=== PATIENT | male | born 1960 | race Hispanic/Latino ===

== ENCOUNTER 2020-09-28 22:08 | Inpatient (IN) | payer MEDICARE ==
[~2020-09-28] VITALS: Ht 170.2 cm; Wt 94.3 kg
[~2020-09-28 22:08] MED LIST: GLYBURIDE5 MG PO; HYDROCHLOROTHIA25 MG PO; LISINOPRIL40 MG PO; METFORMIN HCL500 MG PO
[2020-09-28] MEDS ORDERED: SODIUM CHLORIDE 0.9% 1000ML 1,000 ML IV STA (22:29)
[2020-09-28] MEDS ORDERED: PIPERACILLIN/TAZOBAC 3.375 GM in SODIUM CHLORIDE 0.9% 50ML 50 ML IV STA (22:33)
[2020-09-28 22:56] LABS: BASOPHILS # (AUTO) 0.1 (0.0-0.1); BASOPHILS % 0.6 % (0.0-1.0); EOSINOPHILS # (AUTO) 0.2 (0.0-0.4); EOSINOPHILS % 1.2 % (0.0-6.0); HEMATOCRIT 41.6 % (38.2-49.6); HEMOGLOBIN 14.6 g/dL (14.0-18.0); LYMPHOCYTES # (AUTO) 2.3 (1.0-3.2); LYMPHOCYTES % 14.7 % (18.0-39.1); MEAN CORPUSCULAR HEMOGLOBIN 29.4 pg (28-32); MEAN CORPUSCULAR HGB CONC 35.1 g/dL (31-35); MEAN CORPUSCULAR VOLUME 83.7 fL (81-99); MONOCYTES # (AUTO) 1.4 (0.2-0.8); MONOCYTES % 8.7 % (4.4-11.3); NEUTROPHILS # (AUTO) 11.6 (2.1-6.9); NEUTROPHILS % 74.2 % (38.7-80.0); PLATELET COUNT 264 x10e3/uL (140-360); RED BLOOD COUNT 4.97 x10e6/uL (4.3-5.7); RED CELL DISTRIBUTION WIDTH 13.3 % (11.7-14.4)
[2020-09-28] MEDS ORDERED: MORPHINE SULFATE INJ 2 MG/ML SYR ONE (23:10)
[2020-09-28] MEDS ORDERED: ONDANSETRON HCL INJ 2MG/ML 2ML 2 MG/ML VIAL ONE (23:10)
[2020-09-28 23:16] LABS: ALANINE AMINOTRANSFERASE 19 IU/L (0-55); ALBUMIN 4.1 g/dL (3.5-5.0); ALBUMIN/GLOBULIN RATIO 0.8 (0.8-2.0); ALKALINE PHOSPHATASE 75 IU/L (40-150); ANION GAP 17.8 mmol/L (8-16); BLOOD UREA NITROGEN 18 mg/dL (7-26); BUN/CREATININE RATIO 15 (6-25); CALCIUM 9.1 mg/dL (8.4-10.2); CARBON DIOXIDE 26 mmol/L (22-29); CHLORIDE 99 mmol/L (98-107); CREATININE, SERUM 1.19 mg/dL (0.72-1.25); EST GLOMERULAR FILTRATION RATE > 60 ML/MIN (60-); GLUCOSE 154 mg/dL (74-118); POTASSIUM 3.8 mmol/L (3.5-5.1); SODIUM 139 mmol/L (136-145)
[2020-09-28] MEDS ORDERED: ONDANSETRON HCL INJ 2MG/ML 2ML 2 MG/ML VIAL IV STA (23:16)
[2020-09-28] MEDS ORDERED: MORPHINE SULFATE INJ 2 MG/ML SYR IV STA (23:16)
[2020-09-28] MEDS ORDERED: MORPHINE SULFATE INJ 4 MG/ML INJ 1ML IV STA (23:21)
[2020-09-28] MEDS ORDERED: LIDOCAINE HCL 1% LOCAL INJ 20 ML VIAL ONE (23:56)
[2020-09-29 00:21] LABS: BODY FLUID APPEARANCE CLOUDY; BODY FLUID COLOR YELLOW; BODY FLUID TYPE SYNOVIAL
[2020-09-29 00:23] LABS: RBC,BODY FLUID 154 cells/uL; WBC,BODY FLUID 7216 cells/uL
[2020-09-29 00:42] LABS: LYMPHOCYTES,BODY FLUID 17 %; MONO/MACROPHG,BODY FLUID 4 %; NEUTROPHILS,BODY FLUID 79 %
[2020-09-29] MEDS: SODIUM CHLORIDE 0.9% 1000ML 1,000 ML IV SCH ×3 (01:59→16:54)
[2020-09-29] MEDS: ONDANSETRON HCL INJ 2MG/ML 2ML 2 MG/ML VIAL IV PRN ×3 (06:49→21:30)
[2020-09-29] MEDS: MORPHINE SULFATE INJ 4 MG/ML INJ 1ML IV PRN ×3 (06:49→21:30)
[2020-09-29] MEDS ORDERED: PIPER-TAZ 3.375 GM / NS 50ML IV SCH (08:15)
[2020-09-29] MEDS ORDERED: SODIUM CHLORIDE 0.9% 1000ML 1,000 ML IV SCH (08:15)
[2020-09-29] MEDS: ENOXAPARIN SOD INJ 40 MG/0.4 ML SYR SC SCH (09:00)
[2020-09-29] MEDS: PIPERACILLIN/TAZOBAC 3.375 GM in SODIUM CHLORIDE 0.9% 50ML 50 ML IV SCH ×2 (09:00→16:54)
[2020-09-29] MEDS ORDERED: METFORMIN HCL500 MG PO (16:59)
[2020-09-29] MEDS ORDERED: ATENOLOL50 MG PO (16:59)
[2020-09-29] MEDS ORDERED: NEURONTIN300 MG PO (16:59)
[2020-09-29] MEDS ORDERED: ASPIRIN81 MG PO (16:59)
[2020-09-29] MEDS ORDERED: GLIMEPIRIDE4 MG PO (16:59)
[2020-09-29] MEDS ORDERED: ATORVASTATIN CA10 MG PO (16:59)
[2020-09-29] MEDS ORDERED: NIFEDIPINE10 MG PO (16:59)
[2020-09-29] MEDS ORDERED: CEFTRIAXONE SOD 1 GM/50 ML BAG IV SCH (17:15)
[2020-09-29] MEDS ORDERED: ULTRAM50 MG PO (18:15)
[2020-09-29] MEDS: CEFTRIAXONE SOD 1 GM in SODIUM CHLORIDE 0.9% 50ML 50 ML IV SCH (19:22)
[2020-09-29 20:00] VITALS: BP 177/84
[2020-09-29 21:30] VITALS: BP 177/84
[2020-09-29] MEDS: METHYLPREDNISOLONE SOD SUCC 40 MG/ML VIAL 1ML IV SCH (21:30)
[2020-09-29] MEDS: HYDRALAZINE HCL 20 MG/ML VIAL IV PRN (22:34)
[2020-09-30] VITALS (8 sets, daily range): BP systolic 135–175; BP diastolic 53–88
[2020-09-30] MEDS: SODIUM CHLORIDE 0.9% 1000ML 1,000 ML IV SCH ×3 (01:10→16:02)
[2020-09-30] MEDS: MORPHINE SULFATE INJ 4 MG/ML INJ 1ML IV PRN ×5 (01:30→20:38)
[2020-09-30] MEDS: ONDANSETRON HCL INJ 2MG/ML 2ML 2 MG/ML VIAL IV PRN ×2 (01:30→06:05)
[2020-09-30 05:52] LABS: BASOPHILS % 0.2 % (0.0-1.0); HEMATOCRIT 36.5 % (38.2-49.6); HEMOGLOBIN 12.6 g/dL (14.0-18.0); LYMPHOCYTES # (AUTO) 1.1 (1.0-3.2); LYMPHOCYTES % 6.8 % (18.0-39.1); MEAN CORPUSCULAR HEMOGLOBIN 29.2 pg (28-32); MEAN CORPUSCULAR HGB CONC 34.5 g/dL (31-35); MEAN CORPUSCULAR VOLUME 84.5 fL (81-99); MONOCYTES # (AUTO) 0.7 (0.2-0.8); MONOCYTES % 4.6 % (4.4-11.3); NEUTROPHILS # (AUTO) 13.8 (2.1-6.9); NEUTROPHILS % 87.8 % (38.7-80.0); PLATELET COUNT 233 x10e3/uL (140-360); RED BLOOD COUNT 4.32 x10e6/uL (4.3-5.7); RED CELL DISTRIBUTION WIDTH 13.3 % (11.7-14.4)
[2020-09-30 07:01] LABS: ALANINE AMINOTRANSFERASE 16 IU/L (0-55); ALBUMIN 2.9 g/dL (3.5-5.0); ALBUMIN/GLOBULIN RATIO 0.6 (0.8-2.0); ALKALINE PHOSPHATASE 57 IU/L (40-150); ANION GAP 16.7 mmol/L (8-16); BLOOD UREA NITROGEN 17 mg/dL (7-26); BUN/CREATININE RATIO 16 (6-25); CALCIUM 8.1 mg/dL (8.4-10.2); CARBON DIOXIDE 24 mmol/L (22-29); CHLORIDE 100 mmol/L (98-107); CREATININE, SERUM 1.07 mg/dL (0.72-1.25); EST GLOMERULAR FILTRATION RATE > 60 ML/MIN (60-); GLUCOSE 208 mg/dL (74-118); POTASSIUM 3.7 mmol/L (3.5-5.1); SODIUM 137 mmol/L (136-145)
[2020-09-30] MEDS: ENOXAPARIN SOD INJ 40 MG/0.4 ML SYR SC SCH (09:51)
[2020-09-30] MEDS: METHYLPREDNISOLONE SOD SUCC 40 MG/ML VIAL 1ML IV SCH ×2 (09:51→20:38)
[2020-09-30] MEDS: CEFTRIAXONE SOD 1 GM in SODIUM CHLORIDE 0.9% 50ML 50 ML IV SCH (16:12)
[2020-09-30] MEDS: HYDRALAZINE HCL 20 MG/ML VIAL IV PRN (21:37)
[2020-09-30] MEDS ORDERED: DEXTROSE 50% SYRINGE 50 ML IV PRN (23:15)
[2020-09-30] MEDS: GABAPENTIN 300 MG CAP PO SCH (23:17)
[2020-09-30] MEDS: ATORVASTATIN 10 MG TAB PO SCH (23:17)
[2020-09-30] MEDS: INSULIN LISPRO 100 UNIT/1 ML 3ML VIAL SQ SCH (23:31)
[2020-10-01] VITALS (7 sets, daily range): BP systolic 136–155; BP diastolic 62–80
[2020-10-01] MEDS: MORPHINE SULFATE INJ 4 MG/ML INJ 1ML IV PRN ×5 (00:28→22:10)
[2020-10-01] MEDS: SODIUM CHLORIDE 0.9% 1000ML 1,000 ML IV SCH ×3 (00:28→17:16)
[2020-10-01] MEDS ORDERED: NIFEDIPINE 10 MG CAP PO SCH (09:00)
[2020-10-01] MEDS: GABAPENTIN 300 MG CAP PO SCH ×3 (10:31→21:17)
[2020-10-01] MEDS: ASPIRIN 81 MG CHEW TAB PO SCH (10:31)
[2020-10-01] MEDS: GLYBURIDE 5 MG TAB PO SCH (10:31)
[2020-10-01] MEDS: NIFEDIPINE CR 30 MG TAB PO SCH (10:31)
[2020-10-01] MEDS: METHYLPREDNISOLONE SOD SUCC 40 MG/ML VIAL 1ML IV SCH ×2 (10:31→21:17)
[2020-10-01] MEDS: ATENOLOL 50 MG TAB PO SCH (10:32)
[2020-10-01] MEDS: ENOXAPARIN SOD INJ 40 MG/0.4 ML SYR SC SCH (10:32)
[2020-10-01] MEDS: INSULIN LISPRO 100 UNIT/1 ML 3ML VIAL SQ SCH ×4 (11:08→21:24)
[2020-10-01] MEDS: CEFTRIAXONE SOD 1 GM in SODIUM CHLORIDE 0.9% 50ML 50 ML IV SCH (16:55)
[2020-10-01] MEDS: ATORVASTATIN 10 MG TAB PO SCH (21:17)
[2020-10-02] VITALS: BP 135/73
[2020-10-02] MEDS: SODIUM CHLORIDE 0.9% 1000ML 1,000 ML IV SCH ×3 (01:41→16:08)
[2020-10-02] MEDS: MORPHINE SULFATE INJ 4 MG/ML INJ 1ML IV PRN (03:37)
[2020-10-02 04:00] VITALS: BP 107/96
[2020-10-02 08:00] VITALS: BP 135/78
[2020-10-02 08:11] VITALS: BP 135/78
[2020-10-02] MEDS: METHYLPREDNISOLONE SOD SUCC 40 MG/ML VIAL 1ML IV SCH (08:49)
[2020-10-02] MEDS: GABAPENTIN 300 MG CAP PO SCH ×2 (08:49→16:08)
[2020-10-02] MEDS: ASPIRIN 81 MG CHEW TAB PO SCH (08:49)
[2020-10-02] MEDS: GLYBURIDE 5 MG TAB PO SCH (08:49)
[2020-10-02] MEDS: ENOXAPARIN SOD INJ 40 MG/0.4 ML SYR SC SCH (08:50)
[2020-10-02] MEDS: NIFEDIPINE CR 30 MG TAB PO SCH (08:50)
[2020-10-02] MEDS: ATENOLOL 50 MG TAB PO SCH (08:50)
[2020-10-02] MEDS: INSULIN LISPRO 100 UNIT/1 ML 3ML VIAL SQ SCH ×3 (09:35→16:37)
[2020-10-02 12:00] VITALS: BP 156/74
[2020-10-02 12:57] LABS: BASOPHILS % 0.1 % (0.0-1.0); HEMATOCRIT 28.7 % (38.2-49.6); HEMOGLOBIN 9.9 g/dL (14.0-18.0); LYMPHOCYTES # (AUTO) 0.8 (1.0-3.2); LYMPHOCYTES % 6.9 % (18.0-39.1); MEAN CORPUSCULAR HEMOGLOBIN 29.5 pg (28-32); MEAN CORPUSCULAR HGB CONC 34.5 g/dL (31-35); MEAN CORPUSCULAR VOLUME 85.4 fL (81-99); MONOCYTES # (AUTO) 0.5 (0.2-0.8); MONOCYTES % 4.3 % (4.4-11.3); NEUTROPHILS # (AUTO) 10.7 (2.1-6.9); NEUTROPHILS % 87.6 % (38.7-80.0); PLATELET COUNT 232 x10e3/uL (140-360); RED BLOOD COUNT 3.36 x10e6/uL (4.3-5.7); RED CELL DISTRIBUTION WIDTH 13.4 % (11.7-14.4)
[2020-10-02] MEDS ORDERED: INDOMETHACIN20 MG PO (13:40)
[2020-10-02 16:00] VITALS: BP 142/69
[2020-10-02] MEDS: CEFTRIAXONE SOD 1 GM in SODIUM CHLORIDE 0.9% 50ML 50 ML IV SCH (16:08)
[2020-10-03] MEDS ORDERED: GLYBURIDE 5 MG TAB PO SCH (07:30)
== END 2020-10-02 17:50 | disposition home health service (06) | DRG 549 ==
LOC: ER 22:30 → ERHOLD 09-29 01:47 → MED/SURG2 09-29 18:20
PROVIDERS: ADMIT Internal Medicine; ATTEND Internal Medicine
PROC: 0S9D3ZX Drainage of Left Knee Joint, Percutaneous Approach, Diagnostic (ICD-10-PCS; principal; 2020-09-29)
DX: M00.9 Pyogenic arthritis, unspecified (principal); I69.351 Hemiplegia and hemiparesis following cerebral infarction affecting right dominant side; M25.462 Effusion, left knee; I10 Essential (primary) hypertension; E78.5 Hyperlipidemia, unspecified; E11.65 Type 2 diabetes mellitus with hyperglycemia; J40 Bronchitis, not specified as acute or chronic; R00.0 Tachycardia, unspecified; Z20.822 Contact with and (suspected) exposure to COVID-19; E88.09 Other disorders of plasma-protein metabolism, not elsewhere classified; D64.9 Anemia, unspecified; I16.0 Hypertensive urgency; M17.12 Unilateral primary osteoarthritis, left knee; Z79.84 Long term (current) use of oral hypoglycemic drugs
CPT/HCPCS: 36415; 71045; 80053; 82948; 83605; 83615; 84550; 85025; 85651; 86039; 86140; 86200; 86431; 87040; 87070; 87205; 89051; 89060; 93005; 93971; 96361; 96372; 99284; J0360; J0696; J1650; J2001; J2270; J2405; J2543; J2920; J7030; U0002

== ENCOUNTER 2020-12-09 11:23 | Inpatient (IN) | payer MEDICARE ==
[~2020-12-09] VITALS: Ht 170.2 cm; Wt 84.8 kg
[~2020-12-09 11:23] MED LIST changes: +ASPIRIN81 MG PO; +ATENOLOL50 MG PO; +ATORVASTATIN CA10 MG PO; +GLIMEPIRIDE4 MG PO; +INDOMETHACIN20 MG PO; +NEURONTIN300 MG PO; +NIFEDIPINE10 MG PO; +ULTRAM50 MG PO
[2020-12-09] MEDS ORDERED: SODIUM CHLORIDE 0.9% 1000ML 1,000 ML IV STA (11:35)
[2020-12-09 11:54] LABS: BASOPHILS # (AUTO) 0.1 (0.0-0.1); BASOPHILS % 0.6 % (0.0-1.0); EOSINOPHILS # (AUTO) 0.2 (0.0-0.4); EOSINOPHILS % 1.1 % (0.0-6.0); HEMATOCRIT 43.8 % (38.2-49.6); HEMOGLOBIN 14.9 g/dL (14.0-18.0); LYMPHOCYTES # (AUTO) 2.8 (1.0-3.2); LYMPHOCYTES % 16.6 % (18.0-39.1); MEAN CORPUSCULAR HEMOGLOBIN 29.6 pg (28-32); MEAN CORPUSCULAR VOLUME 86.9 fL (81-99); MONOCYTES # (AUTO) 1.4 (0.2-0.8); MONOCYTES % 8.2 % (4.4-11.3); NEUTROPHILS # (AUTO) 12.4 (2.1-6.9); NEUTROPHILS % 72.8 % (38.7-80.0); PLATELET COUNT 264 x10e3/uL (140-360); RED BLOOD COUNT 5.04 x10e6/uL (4.3-5.7); RED CELL DISTRIBUTION WIDTH 13.3 % (11.7-14.4)
[2020-12-09 13:29] LABS: ERYTHROCYTE SEDIMENTATION RATE 75 mm/hr (0-13)
[2020-12-09 14:06] LABS: ALBUMIN 3.5 g/dL (3.5-5.0); ALBUMIN/GLOBULIN RATIO 0.7 (0.8-2.0); CALCIUM 8.9 mg/dL (8.4-10.2); CREATININE, SERUM 1.1 mg/dL (0.72-1.25)
[2020-12-09 14:11] LABS: B-TYPE NATRIURETIC PEPTIDE2 52.7 pg/mL (0-100)
[2020-12-09] MEDS ORDERED: SODIUM CHLORIDE 0.9% 500ML 500 ML IV ONE (14:15)
[2020-12-09 14:57] LABS: CLARITY,URINE SL CLOUDY (CLEAR); COLOR,URINE AMBER (YELLOW); KETONES,URINE NEGATIVE (NEGATIVE); LEUKOCYTE ESTERASE ,URINE NEGATIVE (NEGATIVE); NITRITE,URINE NEGATIVE (NEGATIVE); PROTEIN,URINE DIPSTICK 2+ (NEGATIVE); URINE UROBILINOGEN >=8 mg/dL (0.2 - 1)
[2020-12-09 15:13] LABS: BACTERIA,URINE RARE /HPF
[2020-12-09] MEDS ORDERED: MORPHINE SULFATE INJ 2 MG/ML SYR IV PRN (16:30)
[2020-12-09] MEDS ORDERED: SODIUM CHLORIDE 0.9% 1000ML 1,000 ML IV SCH (16:30)
[2020-12-09] MEDS ORDERED: LIDOCAINE HCL 1% LOCAL INJ 20 ML VIAL INJ ONE (16:30)
[2020-12-09] MEDS ORDERED: ONDANSETRON HCL INJ 2MG/ML 2ML 2 MG/ML VIAL IV PRN ×2 (16:30→22:45)
[2020-12-09] MEDS: PIPERACILLIN/TAZOBACTAM 3.375 GM in SODIUM CHLORIDE 0.9% 50ML 50 ML IV SCH ×2 (17:00→23:28)
[2020-12-09] MEDS: Vancomycin IV 1 GM in SODIUM CHLORIDE 0.9% 250ML 250 ML IV SCH (18:49)
[2020-12-09 18:58] LABS: BODY FLUID APPEARANCE CLOUDY; BODY FLUID COLOR STRAW; BODY FLUID TYPE SYNOVIAL
[2020-12-09 18:59] LABS: RBC,BODY FLUID 7000 cells/uL; WBC,BODY FLUID 25804 cells/uL
[2020-12-09 19:02] LABS: BODY FLUID APPEARANCE CLOUDY; BODY FLUID COLOR STRAW; BODY FLUID TYPE SYNOVIAL; RBC,BODY FLUID 13000 cells/uL; WBC,BODY FLUID 25891 cells/uL
[2020-12-09 19:26] LABS: LYMPHOCYTES,BODY FLUID 93 %; NEUTROPHILS,BODY FLUID 7 %
[2020-12-09 19:39] LABS: LYMPHOCYTES,BODY FLUID 59 %; MONO/MACROPHG,BODY FLUID 23 %; NEUTROPHILS,BODY FLUID 18 %
[2020-12-09] MEDS ORDERED: ACETAMINOPHEN 325 MG TAB PO PRN (22:45)
[2020-12-09] MEDS ORDERED: DEXTROSE 50% SYRINGE 50 ML IV PRN (22:45)
[2020-12-09] MEDS ORDERED: TRAMADOL HCL 50 MG TAB PO PRN (22:45)
[2020-12-09] MEDS ORDERED: HYDRALAZINE HCL 25 MG TAB PO PRN (23:00)
[2020-12-09] MEDS: GABAPENTIN 300 MG CAP PO SCH (23:17)
[2020-12-09] MEDS: ATENOLOL 50 MG TAB PO SCH (23:22)
[2020-12-09 23:32] VITALS: BP 172/75
[2020-12-10] VITALS (9 sets, daily range): BP systolic 131–172; BP diastolic 67–81
[2020-12-10 05:00] LABS: BASOPHILS # (AUTO) 0.1 (0.0-0.1); BASOPHILS % 0.4 % (0.0-1.0); EOSINOPHILS # (AUTO) 0.2 (0.0-0.4); HEMATOCRIT 34.2 % (38.2-49.6); LYMPHOCYTES # (AUTO) 2.1 (1.0-3.2); LYMPHOCYTES % 17.9 % (18.0-39.1); MEAN CORPUSCULAR HEMOGLOBIN 29.9 pg (28-32); MEAN CORPUSCULAR HGB CONC 35.1 g/dL (31-35); MEAN CORPUSCULAR VOLUME 85.1 fL (81-99); MONOCYTES % 8.6 % (4.4-11.3); NEUTROPHILS # (AUTO) 8.4 (2.1-6.9); NEUTROPHILS % 70.6 % (38.7-80.0); PLATELET COUNT 225 x10e3/uL (140-360); RED BLOOD COUNT 4.02 x10e6/uL (4.3-5.7); RED CELL DISTRIBUTION WIDTH 12.8 % (11.7-14.4)
[2020-12-10 05:34] LABS: ALBUMIN 2.9 g/dL (3.5-5.0); ALBUMIN/GLOBULIN RATIO 0.6 (0.8-2.0); ANION GAP 16.3 mmol/L (8-16); CREATININE, SERUM 1.06 mg/dL (0.72-1.25); POTASSIUM 3.3 mmol/L (3.5-5.1)
[2020-12-10] MEDS: PIPERACILLIN/TAZOBACTAM 3.375 GM in SODIUM CHLORIDE 0.9% 50ML 50 ML IV SCH ×2 (05:40→11:54)
[2020-12-10] MEDS: Vancomycin IV 1 GM in SODIUM CHLORIDE 0.9% 250ML 250 ML IV SCH (06:15)
[2020-12-10] MEDS: INDOMETHACIN 25 MG CAP PO SCH ×3 (08:00→16:20)
[2020-12-10] MEDS: INSULIN LISPRO 100 UNIT/1 ML 3ML VIAL SQ SCH ×4 (08:47→21:22)
[2020-12-10] MEDS: MORPHINE SULFATE INJ 4 MG/ML INJ 1ML IV PRN ×2 (08:50→20:20)
[2020-12-10] MEDS: METFORMIN HCL 500 MG TAB PO SCH ×2 (08:57→16:20)
[2020-12-10] MEDS: GLYBURIDE 5 MG TAB PO SCH (08:57)
[2020-12-10] MEDS: NIFEDIPINE CR 30 MG TAB PO SCH (08:58)
[2020-12-10] MEDS: GABAPENTIN 300 MG CAP PO SCH ×3 (08:58→21:45)
[2020-12-10] MEDS ORDERED: POTASSIUM CHLORIDE 10MEQ EA PO ONE (10:45)
[2020-12-10] MEDS: METHYLPREDNISOLONE SOD SUCC 40 MG/ML VIAL 1ML IV SCH ×2 (15:15→21:45)
[2020-12-10] MEDS: HYDROCODONE/APAP 10MG-325MG TAB PO PRN (16:20)
[2020-12-10] MEDS: ATORVASTATIN 10 MG TAB PO SCH (21:45)
[2020-12-10] MEDS: ATENOLOL 50 MG TAB PO SCH (21:47)
[2020-12-11] VITALS (7 sets, daily range): BP systolic 94–130; BP diastolic 55–65
[2020-12-11] MEDS: HYDROCODONE/APAP 10MG-325MG TAB PO PRN ×2 (05:52→20:50)
[2020-12-11] MEDS: GLYBURIDE 5 MG TAB PO SCH (07:53)
[2020-12-11] MEDS: METFORMIN HCL 500 MG TAB PO SCH ×2 (07:53→16:19)
[2020-12-11] MEDS: INSULIN LISPRO 100 UNIT/1 ML 3ML VIAL SQ SCH ×4 (07:55→20:41)
[2020-12-11] MEDS: METHYLPREDNISOLONE SOD SUCC 40 MG/ML VIAL 1ML IV SCH ×2 (08:04→20:40)
[2020-12-11] MEDS: GABAPENTIN 300 MG CAP PO SCH ×3 (08:04→20:40)
[2020-12-11] MEDS: NIFEDIPINE CR 30 MG TAB PO SCH (08:05)
[2020-12-11] MEDS: ATORVASTATIN 10 MG TAB PO SCH (20:40)
[2020-12-11] MEDS: ATENOLOL 50 MG TAB PO SCH (20:40)
[2020-12-12] VITALS: BP 108/69
[2020-12-12 04:00] VITALS: BP 111/62
[2020-12-12] MEDS: INSULIN LISPRO 100 UNIT/1 ML 3ML VIAL SQ SCH ×2 (07:30→11:51)
[2020-12-12 08:22] VITALS: BP 111/62
[2020-12-12 08:29] VITALS: BP 132/69
[2020-12-12] MEDS: GABAPENTIN 300 MG CAP PO SCH (09:20)
[2020-12-12] MEDS: NIFEDIPINE CR 30 MG TAB PO SCH (09:20)
[2020-12-12] MEDS: METHYLPREDNISOLONE SOD SUCC 40 MG/ML VIAL 1ML IV SCH (09:20)
[2020-12-12] MEDS: GLYBURIDE 5 MG TAB PO SCH (09:20)
[2020-12-12] MEDS: METFORMIN HCL 500 MG TAB PO SCH (09:20)
[2020-12-12 12:20] VITALS: BP 133/66
[2020-12-12] MEDS ORDERED: PREDNISONE5 MG/5 ML PO (12:56)
== END 2020-12-12 13:22 | disposition home or self-care (01) | DRG 547 ==
LOC: ER 11:59 → ERHOLD 16:20 → MED/SURG2 22:04
PROVIDERS: ADMIT Internal Medicine; ATTEND Internal Medicine
PROC: 0S9D3ZX Drainage of Left Knee Joint, Percutaneous Approach, Diagnostic (ICD-10-PCS; principal; 2020-12-09)
PROC: 0S9C3ZZ Drainage of Right Knee Joint, Percutaneous Approach (ICD-10-PCS; 2020-12-09)
DX: M06.9 Rheumatoid arthritis, unspecified (principal); M25.462 Effusion, left knee; M25.461 Effusion, right knee; E11.40 Type 2 diabetes mellitus with diabetic neuropathy, unspecified; I10 Essential (primary) hypertension; E78.5 Hyperlipidemia, unspecified; E11.9 Type 2 diabetes mellitus without complications; Z79.84 Long term (current) use of oral hypoglycemic drugs
CPT/HCPCS: 36415; 71045; 80053; 81001; 82948; 83605; 83880; 85025; 85651; 87040; 87070; 87086; 87102; 87116; 87205; 87206; 89051; 89060; 96372; 97139; 99284; J2001; J2270; J2405; J2543; J2920; J3370; J7030; J7040; J7050